=== PATIENT | female | born 1945 | race Caucasian/White ===

== ENCOUNTER 2016-10-13 15:34 | Inpatient (IN) | payer OTHER ==
[~2016-10-13] VITALS: Ht 157.5 cm; Wt 71.3 kg
[~2016-10-13 15:34] MED LIST: ABILIFY2 MG PO; ANTACID MAXIM1000 MG PO; ATIVAN1 MG PO; Ativan PO; CALCIO DEL MAR500 MG PO; CALCIUM; CALCIUM 500 MG1 EACH PO; CALCIUM 600 +1 EAC3 PO; CALCIUM WITH V PO; CALCIUM600 MG PO; CALTRATE 6001 TABLET; CELEXA20 MG PO; CIPRO500 MG PO; CIPROFLOXACIN500 M1 PO; CITALOPRAM HBR20 MG PO; CITRATE OF MAG296 ML PO; Dilaudid PO; ENABLEX7.5 MG PO; ENDOCET 5-3251 EACH PO; FLUOXETINE HCL20 MG PO; LEVAQUIN750 MG PO; LIDODERM 5% P1 PATCH TD; MEGACE40 M1 PO; MEGESTROL ACETATE; METOPROLOL SUCC25 MG PO; MULTIVITAMIN1 EAC1 PO; MULTIVITAMIN1 EAC2 PO; OMEPRAZOLE40 M1 PO; ONDANSETRON HCL4 M1 PO; OXAYDO5 MG PO; OXYCODONE HCL5 M1 PO; OXYCODONE HCL5 MG PO; OXYCODONE-ACET1 EACH PO; PANTOPRAZOLE SO40 MG PO; PRILOSEC20 MG PO; PROTONIX40 MG PO; TRAMADOL HCL50 MG PO; Tylenol Regular Stre PO; ULTRAM50 MG PO; VIT B; VITAMIN C 250250 MG PO; VITAMIN D-32000 UNIT PO; VITAMIN D250000 UNIT PO; VITAMIN D31000 UNI2 PO; VITAMIN D400 UNI2 PO; ZOFRAN4 MG PO
[2016-10-13 16:00] LABS: HEMATOCRIT 43.2 % (36.0-46.0); MCH 30.9 PG (29.0-34.0); MCHC 33.3 G/DL (30.0-36.0); MCV 92.7 FL (83-99); MEAN PLAT.VOLUME 9.3 uM^3 (9.5-12.4); PLATELET COUNT 196 K/uL (156-360); RBC DIS.WIDTH-CV 13.6 % (11.8-14.6); RBC DIS.WIDTH-SD 44.8 % (39-53); RED BLOOD COUNT 4.66 M/uL (3.80-5.20)
[2016-10-13 16:04] LABS: WHITE BLOOD COUNT 7.8 K/uL (4.1-10.2)
[2016-10-13 16:09] LABS: CHLORIDE 106 mEq/L (99-109); POTASSIUM 4.3 mEq/L (3.7-5.4); SODIUM 136 mEq/L (136-147)
[2016-10-13 16:11] LABS: GLUCOSE 143 mg/dL (70-99)
[2016-10-13 16:13] LABS: ANION GAP 12 MEQ/L (2-14); TOTAL BILIRUBIN 0.7 mg/dL (0.0-1.0)
[2016-10-13 16:15] LABS: ALKALINE PHOSPHATASE 69 IU/L (3-129); GFR ESTIMATE (CALCULATED) 47 mL/min/
[2016-10-13 16:16] LABS: UREA NITROGEN (BUN) 23 mg/dL (9-23)
[2016-10-13 16:30] LABS: COLOR BROWN ((YELLOW)); GLUCOSE (STRIP) NEGATIVE; KETONES TRACE
[2016-10-13 16:31] LABS: ADD MIUA? YES; BILIRUBIN NEGATIVE; BLOOD LARGE; LEUKOCYTES SMALL; NITRITE NEGATIVE; PROTEIN (STRIP) 100; SPECIFIC GRAVITY 1.021 (1.000-1.030); UROBILINOGEN 0.2 MG/DL (0.2-1.0)
[2016-10-13 16:33] LABS: RED BLOOD CELLS TNTC /HPF (0-5); UCUL ADDED? YES
[2016-10-13 19:22] LABS: INTER. NORMALIZED RATIO 1.1; PROTHROMBIN TIME 11.3 (9.2-11.2); PTT 28.9 (25-32)
[2016-10-13] MEDS ORDERED: OMEPRAZOLE40 M1 PO (19:29)
[2016-10-13] MEDS ORDERED: PERCOCET 5/31 TABLET PO (19:29)
[2016-10-13] MEDS ORDERED: BACTRIM,SEPT1 TABLET PO (19:30)
[2016-10-13] MEDS ORDERED: CLOBETASOL EMOL45 GM TP (19:31)
[2016-10-13 21:32] VITALS: BP 121/64
[2016-10-14] VITALS (7 sets, daily range): BP systolic 109–161; BP diastolic 57–78
[2016-10-14 06:07] LABS: EOSINOPHIL (%) 0.1 % (0-5); HEMATOCRIT 40.4 % (36.0-46.0); IMMATURE GRANULOCYTE (%) 0.2 % (0.0-0.7); LYMPHOCYTE COUNT 0.8 K/uL (1.0-2.8); MCH 31.4 PG (29.0-34.0); MCHC 33.2 G/DL (30.0-36.0); MCV 94.6 FL (83-99); MONOCYTE COUNT 0.7 K/uL (0-0.8); NEUTROPHIL (%) 84.4 % (45-76); NEUTROPHIL COUNT 8.2 K/uL (1.8-6.4); PLATELET COUNT 167 K/uL (156-360); RBC DIS.WIDTH-CV 13.8 % (11.8-14.6); RBC DIS.WIDTH-SD 47.2 % (39-53); RED BLOOD COUNT 4.27 M/uL (3.80-5.20); WHITE BLOOD COUNT 9.7 K/uL (4.1-10.2)
[2016-10-15] VITALS (7 sets, daily range): BP systolic 95–176; BP diastolic 53–77
[2016-10-15 07:10] LABS: HEMATOCRIT 38.3 % (36.0-46.0); MCH 30.3 PG (29.0-34.0); MCHC 32.1 G/DL (30.0-36.0); MCV 94.3 FL (83-99); MEAN PLAT.VOLUME 9.9 uM^3 (9.5-12.4); PLATELET COUNT 159 K/uL (156-360); RBC DIS.WIDTH-CV 13.8 % (11.8-14.6); RBC DIS.WIDTH-SD 47.6 % (39-53); RED BLOOD COUNT 4.06 M/uL (3.80-5.20); WHITE BLOOD COUNT 7.9 K/uL (4.1-10.2)
[2016-10-15 07:38] LABS: ANION GAP 8 MEQ/L (2-14); CHLORIDE 105 MEQ/L (99-109); GFR ESTIMATE (CALCULATED) 58 mL/min/; GLUCOSE 124 mg/dL (70-99); MAGNESIUM 1.9 mg/dl (1.3-2.7); POTASSIUM 4.5 MEQ/L (3.7-5.4); SAMPLE HEMOLYSIS CHECK 0; SAMPLE ICTERIC CHECK 0; SAMPLE LIPEMIA CHECK 0; SODIUM 137 MEQ/L (136-147); UREA NITROGEN (BUN) 19 mg/dL (9-23)
[2016-10-16 04:14] VITALS: BP 111/55
[2016-10-16 07:36] VITALS: BP 117/63
[2016-10-16 12:28] VITALS: BP 108/57
== END 2016-10-16 15:56 | disposition home or self-care (01) | DRG 694 ==
LOC: EME 15:34 → EDOF 19:27 → 5WEST 19:27
PROVIDERS: Emergency Medicine; Internal Medicine; Physician Assistant
DX: N13.30 Unspecified hydronephrosis (principal); E87.2 Acidosis; E11.65 Type 2 diabetes mellitus with hyperglycemia; K74.60 Unspecified cirrhosis of liver; R31.0 Gross hematuria; E78.5 Hyperlipidemia, unspecified; Z66 Do not resuscitate; N28.1 Cyst of kidney, acquired; N32.89 Other specified disorders of bladder; R10.31 Right lower quadrant pain; F41.9 Anxiety disorder, unspecified; N28.89 Other specified disorders of kidney and ureter
CPT/HCPCS: 71020; 74177; 80048; 80053; 81003; 83605; 83735; 85025; 85027; 85610; 85730; 87086; 94799; 99281; 99285; G0378; J0744; J1626; J1885; J2270; J2405; J2765; J3010; J7030

== ENCOUNTER 2016-12-01 11:49 | Day surgery (SDC) | payer OTHER ==
[~2016-12-01] VITALS: Ht 157.5 cm; Wt 68.0 kg
[~2016-12-01 11:49] MED LIST changes: +BACTRIM,SEPT1 TABLET PO; +CLOBETASOL EMOL45 GM TP; +PERCOCET 5/31 TABLET PO; +PROZAC20 MG PO
[2016-12-01 12:42] VITALS: BP 149/82
[2016-12-01 13:40] LABS: METH RESISTANT S AUREUS PCR POSITIVE (NEGATIVE)
[2016-12-01 13:41] LABS: PROBE CHECK PASS
[2016-12-01 15:55] VITALS: BP 145/77
[2016-12-01 16:49] VITALS: BP 156/89
[2016-12-01 19:27] VITALS: BP 145/78
[2016-12-01 20:20] VITALS: BP 107/63
== END 2016-12-01 20:44 | disposition home or self-care (01) ==
LOC: SDC 11:49
PROVIDERS: Urology
DX: N13.2 Hydronephrosis with renal and ureteral calculous obstruction (principal); K21.9 Gastro-esophageal reflux disease without esophagitis; F41.9 Anxiety disorder, unspecified
CPT/HCPCS: 74420; 80048; 82365 90; 82948; 87641; C1876; J0690; J1100; J1170; J1580; J1885; J2405; J2765; J3010

== ENCOUNTER 2017-12-18 08:22 | Emergency (ER) | payer OTHER ==
[~2017-12-18] VITALS: Ht 157.5 cm; Wt 69.0 kg
[2017-12-18 09:14] LABS: HEMATOCRIT 38.7 % (36.0-46.0); HEMOGLOBIN 13.1 G/DL (11.9-15.5); MCH 31.6 PG (29.0-34.0); MCHC 33.9 G/DL (30.0-36.0); MCV 93.3 FL (83-99); PLATELET COUNT 126 K/uL (156-360); RBC DIS.WIDTH-CV 13.3 % (11.8-14.6); RBC DIS.WIDTH-SD 45.3 % (39-53); RED BLOOD COUNT 4.15 M/uL (3.80-5.20); WHITE BLOOD COUNT 4.3 K/uL (4.1-10.2)
[2017-12-18 09:25] LABS: CHLORIDE 108 mEq/L (99-109); POTASSIUM 3.8 mEq/L (3.7-5.4); SODIUM 138 mEq/L (136-147)
[2017-12-18 09:28] LABS: GLUCOSE 136 mg/dL (70-99); TOTAL PROTEIN 7.4 g/dL (6.4-8.3)
[2017-12-18 09:30] LABS: TOTAL BILIRUBIN 0.9 mg/dL (0.0-1.0)
[2017-12-18 09:31] LABS: ALKALINE PHOSPHATASE 92 IU/L (3-129); CREATININE 0.9 mg/dL (0.6-1.3); GFR ESTIMATE (CALCULATED) > 59 mL/min/
[2017-12-18 09:32] LABS: UREA NITROGEN (BUN) 22 mg/dL (9-23)
[2017-12-18 09:33] LABS: AST (GOT) 40 IU/L (2-34)
[2017-12-18 09:34] LABS: ALT (GPT) 33 IU/L (3-49)
[2017-12-18 09:35] LABS: LIPASE 41 U/L (1.0-51.0)
[2017-12-18] MEDS ORDERED: ZOFRAN4 MG PO (13:03)
[2017-12-18] MEDS ORDERED: OXYCODONE HCL5 MG PO (13:04)
[2017-12-18 13:23] VITALS: BP 108/56
== END 2017-12-18 13:24 | disposition home or self-care (01) ==
LOC: EME 08:22
PROVIDERS: Emergency Medicine
DX: R10.10 Upper abdominal pain, unspecified (principal); E11.9 Type 2 diabetes mellitus without complications; E78.5 Hyperlipidemia, unspecified; Z87.442 Personal history of urinary calculi; Z93.2 Ileostomy status; K51.90 Ulcerative colitis, unspecified, without complications; K74.60 Unspecified cirrhosis of liver; Z86.73 Personal history of transient ischemic attack (TIA), and cerebral infarction without residual deficits; G47.30 Sleep apnea, unspecified; Z88.2 Allergy status to sulfonamides; Z88.0 Allergy status to penicillin; Z87.891 Personal history of nicotine dependence; Z88.5 Allergy status to narcotic agent
CPT/HCPCS: 74177; 80053; 83605; 83690; 85027; 99281; 99285; J2405; J3010; J7030

== ENCOUNTER 2017-12-20 11:09 | Emergency (ER) | payer OTHER ==
[~2017-12-20] VITALS: Ht 157.5 cm; Wt 70.4 kg
[2017-12-20 12:01] LABS: BASOPHIL (%) 0.8 % (0-1); EOSINOPHIL COUNT 0.2 K/uL (0-0.3); HEMATOCRIT 37.2 % (36.0-46.0); HEMOGLOBIN 12.4 G/DL (11.9-15.5); IMMATURE GRANULOCYTE (%) 0.3 % (0.0-0.7); LYMPHOCYTE (%) 23.8 % (15-42); LYMPHOCYTE COUNT 0.9 K/uL (1.0-2.8); MCH 31.6 PG (29.0-34.0); MCHC 33.3 G/DL (30.0-36.0); MCV 94.9 FL (83-99); MONOCYTE (%) 9.6 % (3-12); MONOCYTE COUNT 0.4 K/uL (0-0.8); NEUTROPHIL (%) 61.5 % (45-76); NEUTROPHIL COUNT 2.3 K/uL (1.8-6.4); PLATELET COUNT 95 K/uL (156-360); RBC DIS.WIDTH-CV 13.2 % (11.8-14.6); RBC DIS.WIDTH-SD 46.1 % (39-53); RED BLOOD COUNT 3.92 M/uL (3.80-5.20); WHITE BLOOD COUNT 3.7 K/uL (4.1-10.2)
[2017-12-20 12:07] LABS: ALBUMIN 3.9 g/dL (3.2-4.8); CHLORIDE 108 mEq/L (99-109); POTASSIUM 3.8 mEq/L (3.7-5.4); SODIUM 139 mEq/L (136-147)
[2017-12-20 12:09] LABS: GLUCOSE 114 mg/dL (70-99); TOTAL PROTEIN 7.1 g/dL (6.4-8.3)
[2017-12-20 12:11] LABS: TOTAL BILIRUBIN 0.9 mg/dL (0.0-1.0)
[2017-12-20 12:13] LABS: ALKALINE PHOSPHATASE 78 IU/L (3-129); CREATININE 0.9 mg/dL (0.6-1.3); GFR ESTIMATE (CALCULATED) > 59 mL/min/
[2017-12-20 12:14] LABS: UREA NITROGEN (BUN) 15 mg/dL (9-23)
[2017-12-20 12:15] LABS: AST (GOT) 51 IU/L (2-34)
[2017-12-20 12:16] LABS: ALT (GPT) 35 IU/L (3-49); LIPASE 31 U/L (1.0-51.0)
[2017-12-20 12:18] LABS: TROP-I INTERPRETATION NEGATIVE; TROPONIN-I < 0.01 ng/mL (0.0-0.30)
[2017-12-20 12:28] LABS: APPEARANCE CLEAR ((CLEAR)); BILIRUBIN NEGATIVE; BLOOD SMALL; COLOR STRAW ((YELLOW)); GLUCOSE (STRIP) NEGATIVE; KETONES NEGATIVE; LEUKOCYTES LARGE; NITRITE NEGATIVE; PROTEIN (STRIP) NEGATIVE; SPECIFIC GRAVITY 1.005 (1.000-1.030); UROBILINOGEN 0.2 MG/DL (0.2-1.0)
[2017-12-20 12:53] LABS: BACTERIA RARE /HPF; EPITHELIAL CELLS RARE /HPF; MUCUS NONE SEEN /LPF; RED BLOOD CELLS 0-5 /HPF (0-5); UCUL ADDED? YES; WHITE BLOOD CELLS 30-40 /HPF (0-5)
[2017-12-20] MEDS ORDERED: ULTRAM50 MG PO (15:52)
[2017-12-20 16:09] VITALS: BP 141/61
== END 2017-12-20 16:54 | disposition home or self-care (01) ==
LOC: EME 11:09
PROVIDERS: Emergency Medicine
DX: K46.9 Unspecified abdominal hernia without obstruction or gangrene (principal); N20.0 Calculus of kidney; I70.0 Atherosclerosis of aorta; E78.5 Hyperlipidemia, unspecified; E11.9 Type 2 diabetes mellitus without complications; M19.90 Unspecified osteoarthritis, unspecified site; G47.30 Sleep apnea, unspecified; Z87.891 Personal history of nicotine dependence; Z93.2 Ileostomy status; Z93.3 Colostomy status; Z98.890 Other specified postprocedural states; Z87.19 Personal history of other diseases of the digestive system; Z87.442 Personal history of urinary calculi; Z86.73 Personal history of transient ischemic attack (TIA), and cerebral infarction without residual deficits; Z86.14 Personal history of Methicillin resistant Staphylococcus aureus infection; Z91.048 Other nonmedicinal substance allergy status; Z88.2 Allergy status to sulfonamides; Z88.6 Allergy status to analgesic agent; Z88.0 Allergy status to penicillin; Z88.5 Allergy status to narcotic agent; Z88.1 Allergy status to other antibiotic agents; Z88.8 Allergy status to other drugs, medicaments and biological substances
CPT/HCPCS: 74177; 80053; 81003; 82800; 83605; 83690; 84484; 85025; 87086; 93005; 99281; 99284; J7030